=== PATIENT | female | born 1975 ===

== ENCOUNTER 2017-07-29 20:27 | Emergency (ER) | payer MEDICAID ==
[2017-07-29] MEDS: CEFAZOLIN 1 GM INJ IM (23:39)
[2017-07-29] MEDS: DIPHTH/TET/ACEL PERTUSS (ADULT) 0.5 ML VIAL IM* (23:40)
== END 2017-07-30 00:09 | disposition home or self-care (01) ==
LOC: FTE 20:27
DX: L03.031 Cellulitis of right toe (principal); E11.9 Type 2 diabetes mellitus without complications; Z23 Encounter for immunization
CPT/HCPCS: 90471; 90715; 96372; 99284-25